=== PATIENT | male | born 1970 | race Caucasian/White ===

== ENCOUNTER 2019-07-05 06:15 | Day surgery (SDC) | payer OTHER ==
[2019-07-05] MEDS ORDERED: PERCOCET 5-3251 EACH PO (12:04)
[2019-07-05] MEDS ORDERED: COLACE100 MG PO (12:04)
[2019-07-05] MEDS ORDERED: NEURONTIN600 M1 PO (12:04)
== END 2019-07-05 14:00 | disposition home or self-care (01) ==
LOC: CIR.AMB 06:15
DX: K42.0 Umbilical hernia with obstruction, without gangrene (principal)